=== PATIENT | female | born 1970 | race Caucasian/White ===

== ENCOUNTER 2022-03-26 06:35 | Outpatient (CLI) | payer OTHER, SELFPAY ==
[2022-03-26 07:43] LABS: Basophils Absolute Auto 0.1 K/mm3 (0.0-0.1); Basophils Percent Auto 0.8 % (0.2-1.2); Eosinophils Absolute Auto 0.2 K/mm3 (0-0.3); Eosinophils Percent Auto 3.8 % (0-4.4); Hematocrit 38.1 % (37.0-47.0); Hemoglobin 12.3 g/dL (12.0-15.0); Immature Granulocyte Absolute 0.06 K/mm3 (0.00-0.031); Lymphocytes Absolute Auto 1.76 K/mm3 (0.9-3.2); Lymphocytes Percent Auto 28.8 % (18.3-44.2); Mean Corpuscular HGB Conc 32.3 g/dl (32-36); Mean Corpuscular Hemoglobin 29.4 pg (26-34); Mean Corpuscular Volume 90.9 fl (80-100); Mean Platelet Volume 8.5 fl (7.4-10.4); Monocytes Absolute Auto 0.4 K/mm3 (0.1-0.6); Monocytes Percent Auto 6.9 % (2.6-8.5); Neutrophils Absolute Auto 3.6 K/mm3 (1.3-6.7); Neutrophils Percent Auto 58.7 % (45.5-73.1); Platelet Count Result 184 k/mm3 (150-375); Red Blood Count 4.19 M/mm3 (4.2-5.4); Red Cell Distribution Width 15.3 % (11.5-14.5); White Blood Count 6.1 K/mm3 (4.5-10.0)
[2022-03-26 07:49] LABS: Appearance Urine Slightly Cloudy (Clear); Bilirubin Urine Negative (Negative); Blood Urine Negative (Negative); Color Urine Yellow (Yellow); Glucose Urine UA Negative (Negative); Ketones Urine Trace mg/dL (Negative); Leukocyte Esterase Ur Trace LEU/UL (NEGATIVE); Nitrate Urine Negative (Negative); Protein Urine Trace mg/dL (Negative); Specific Grav Ur 1.025 (1.001-1.035)
[2022-03-26 07:52] LABS: Bacteria Urine Trace /hpf; RBC Urine 0-2 /hpf (0-2); Squamous Epithelial Cell Urine Moderate /hpf (Few)
[2022-03-26 08:01] LABS: Alanine Aminotransferase 53 U/L (6-35); Albumin Level 4.4 g/dL (3.5-5.1); Alkaline Phosphatase 96 U/L (38-126); Anion Gap 8 mmol/L (8-16); Aspartate Amino Transferase 74 U/L (14-36); Bilirubin,Total 0.3 mg/dL (0.2-1.3); Blood Urea Nitrogen 13 mg/dL (7-17); Calcium 9.1 mg/dL (8.4-10.2); Carbon Dioxide 27 mmol/L (22-30); Chloride 106 mmol/L (98-107); Cholesterol 206 mg/dL (0-200); Estimated Glomerular Filt Rate > 60; Glucose 129 mg/dL (65-110); HDL Direct 32 mg/dL; Phosphorus 4.2 mg/dL (2.5-4.5); Sodium 141 mmol/L (137-145); Triglycerides 279 mg/dL (<150)
[2022-03-26 08:04] LABS: Creatinine Urine 140.9 mg/dL; Total Protein Urine Random 13 mg/dL; Ur Ttl Prot Creatinine Ratio 0.09 mg/mg (0-0.20)
[2022-03-26 08:09] LABS: Microalbumin Urine Random < 6.0 mg/L (0-16.7)
[2022-03-26 08:10] LABS: MALB Creatinine Ratio < 4.3 mg/g (0-30)
[2022-03-26 08:11] LABS: LDL Cholesterol Direct 114 mg/dL
[2022-03-26 08:17] LABS: Free T4 Free Thyroxine 1.05 ng/mL (0.78-2.19); Vitamin D 25 Hydroxy 23.5 ng/mL
[2022-03-26 08:23] LABS: Add Urine Microscopic? YES
--- NOTE | 2022-03-26 09:34 | WPDNEUROLOGY ---
Neurology EEG Report General Information Date of Study: 03/26/22 TEST eeg DIAGNOSIS amnesia CONDITION OF RECORDING Awake drowsy and sleep EEG NUMBER [id number] CLINICAL HISTORY patient has history of chemotherapy and is having issues with her memory EEG DESCRIPTION basic resting occipital frequency consists of moderate amount of medium voltage 8 to 9 hertz per 2nd alpha admixed with minimal amount of low-voltage 15 to 18 hertz per 2nd beta. Bilateral symmetrical sleep activity seen during sleep. Low-voltage beta activity seen diffusely intermittently during drowsiness. Photic stimulation produced normal drive. Hyperventilation not done. Non paroxysmal. Non focal. Nonlateralizing. IMPRESSION Normal record
== END 2022-03-26 06:36 | disposition home or self-care (01) ==
PROVIDERS: PCP Internal Medicine; Visit Provider Psychiatry & Neurology Neurology
DX: E11.65 Type 2 diabetes mellitus with hyperglycemia (principal); E78.5 Hyperlipidemia, unspecified; K76.89 Other specified diseases of liver; E87.1 Hypo-osmolality and hyponatremia; E55.9 Vitamin D deficiency, unspecified; N39.0 Urinary tract infection, site not specified
CPT/HCPCS: 36415; 80053; 80061; 81001; 82043; 82306; 82570; 83036; 83970; 84100; 84156; 84439; 84443; 85025; 95816

== ENCOUNTER 2023-03-10 10:03 | Outpatient (CLI) | payer OTHER, SELFPAY ==
--- NOTE | ~2023-03-10 | XR_ITS ---
XR abdomen/kub 1V 03/10/2023 11:10 Indication: Decreased bowel sounds. Procedure: KUB Comparison: No prior studies for comparison. Findings: There is an oval mass overlying the right kidney with circumferential calcification, most l ikely a gallstone. Bowel gas pattern nonobstructive. Moderate colonic fecal loading. No acute osseous abnormality.. No acute osseous abnormality. Impression: 1: Oval circumferentially calcified mass overlying the right upper abdomen, possibly gallstone. Recom mend correlation with CT or ultrasound as clinically indicated. Reviewed, dictated and finalized at location [] Impression: 1: Oval circumferentially calcified mass overlying the right upper abdomen, pos sibly gallstone. Recommend correlation with CT or ultrasound as clinically shanta cated.
== END 2023-03-10 10:04 | disposition home or self-care (01) ==
PROVIDERS: PCP Internal Medicine; Visit Provider Nurse Practitioner
DX: R19.01 Right upper quadrant abdominal swelling, mass and lump (principal); K59.00 Constipation, unspecified; R10.32 Left lower quadrant pain
CPT/HCPCS: 74018

== ENCOUNTER 2023-04-19 09:31 | Outpatient (CLI) | payer OTHER, SELFPAY ==
--- NOTE | ~2023-04-19 | CT_ITS ---
CT of the Abdomen and Pelvis: Indication: Calcified right abdominal mass Technique: 2.5 mm axial scans were obtained through the abdomen and pelvis following intravenous adm inistration of 100 cc of Omnipaque 350. Dose reduction technique was used on this scan by utilizing a utomated exposure control and iterative reconstruction technique. The dose-length product (DLP) was 1 279.37 mGy-cm. Findings: Scans through the lung bases are unremarkable. The liver, pancreas, adrenals and kidneys are within normal limits. 2.6 cm peripherally calcified gal lstone is present. Spleen is mildly enlarged. There are atherosclerotic calcifications of the aorta. No lymphadenopathy. No bowel obstruction or bowel wall thickening. Normal appendix. Images through the pelvis were performed. Urinary bladder unremarkable. No adnexal mass seen. No asci alexey. Impression: Cholelithiasis. Splenomegaly, of uncertain etiology. Reviewed, dictated and finalized at [facility]. Impression: Cholelithiasis. Splenomegaly, of uncertain etiology.
[2023-04-19 10:17] LABS: Estimated Glomerular Filt Rate > 60
== END 2023-04-19 09:32 | disposition home or self-care (01) ==
LOC: ANHIMG 09:33
PROVIDERS: PCP Internal Medicine; Visit Provider Nurse Practitioner
DX: R93.5 Abnormal findings on diagnostic imaging of other abdominal regions, including retroperitoneum (principal); R19.4 Change in bowel habit; R10.32 Left lower quadrant pain; K59.00 Constipation, unspecified; R19.01 Right upper quadrant abdominal swelling, mass and lump; K80.20 Calculus of gallbladder without cholecystitis without obstruction; R16.1 Splenomegaly, not elsewhere classified
CPT/HCPCS: 74177; Q9967

== ENCOUNTER 2023-05-26 11:34 | Outpatient (CLI) | payer OTHER, SELFPAY ==
--- NOTE | 2023-05-26 11:30 | ECG_ITS ---
Measurements Intervals [place] Rate: 108 P: 39 AK: 156 QRS: 0 QRSD: 96 T: 77 QT: 327 QTc: 439 Interpretive Statements SINUS TACHYCARDIA VOLTAGE CRITERIA FOR LVH [MEETS CRITERIA IN ONE OF: R(aVL), S(V1), R(V5), R(V5/V6)+S(V1)] NONSPECIFIC T-WAVE ABNORMALITY ABNORMAL ECG NO PREVIOUS ECG AVAILABLE FOR COMPARISON Electronically Signed On 05-26-2023 14:35:53 CDT by Hermelindo Oden M.D.
[2023-05-26 12:25] LABS: Prothrombin Time 13.5 Seconds (11.1-14.7)
[2023-05-26 12:27] LABS: Anion Gap 12 mmol/L (8-16); Blood Urea Nitrogen 12 mg/dL (7-17); Calcium 9.7 mg/dL (8.4-10.2); Carbon Dioxide 25 mmol/L (22-30); Chloride 99 mmol/L (98-107); Estimated Glomerular Filt Rate > 60; Glucose 307 mg/dL (65-110); Potassium 4.3 mmol/L (3.4-5.0); Sodium 136 mmol/L (137-145)
[2023-05-26 12:28] LABS: Alanine Aminotransferase 38 U/L (6-35); Albumin Level 4.3 g/dL (3.5-5.1); Alkaline Phosphatase 124 U/L (38-126); Amylase 47 U/L (30-110); Aspartate Amino Transferase 43 U/L (14-36); Bilirubin,Total 0.4 mg/dL (0.2-1.3); Lipase 149 U/L (23-300)
== END 2023-05-26 11:35 | disposition home or self-care (01) ==
LOC: ANHSURGERY 11:40
PROVIDERS: Anesthesiology; PCP Internal Medicine; Visit Provider Surgery
DX: Z01.812 Encounter for preprocedural laboratory examination (principal); Z01.810 Encounter for preprocedural cardiovascular examination; K80.20 Calculus of gallbladder without cholecystitis without obstruction; E11.9 Type 2 diabetes mellitus without complications; Z72.0 Tobacco use; R00.0 Tachycardia, unspecified
CPT/HCPCS: 36415; 80048; 80076; 82150; 83690; 85610; 86850; 86900; 86901; 93005

== ENCOUNTER 2023-06-03 02:14 | Day surgery (SDC) | payer OTHER, SELFPAY ==
[2023-05-24 14:57] VITALS: BMI 30.1
--- NOTE | 2023-05-24 14:59 | PC.NURSE ---
Report to the Outpatient Waiting Room, entrance under the green pavilion located off [facility], at time _1130_ on date _[id number]_. Planned Procedure Time: _130pm_. Time changes happen often and if your time is changed the preop area will call you the afternoon before. - You and your visitor will be asked to self-screen and do not enter if you have any COVID symptoms. - A mask is optional within the hospital at this time. Patients may have clear liquids (water, carbonated beverages, clear teas, apple juice) until 3 hours prior to surgery with a maximum of 20 ounces. - No food from midnight until time of surgery Take the following medications with a SIP of water the morning of surgery: ___Lamotrigine, Gabapentin, Duloxetine, Quetiapine, and Venlafaxine. DO NOT STOP ANY OF YOUR OTHER PRESCRIPTION MEDICATIONS PRIOR TO SURGERY Medications to discontinue per physician ____None Date to take last dose Please no make-up, nail slovenian, hairspray, perfume, deodorant, or body powder the day of surgery. No jewelry (including any body piercings) or valuables the day of surgery, leave them at home. Please take a shower or bath the night before, or the morning of, surgery with Chlorhexadine gluconate an antibacterial soap. Wear comfortable, loose fitting clothing. - Jewelry must be removed prior to entering the operating room. Rings and piercings that are not removed may be cut off. - The hospital will not accept responsibility for valuables. - Please leave all valuables, including medications, at home the day of surgery. If you are going home after surgery, a licensed regional company truck driver must drive you home. - NO public transportation without another adult if you receive anesthesia. - We recommend that an adult stay with you for 24 hours following discharge. - We also recommend that you do not drive, make important decision, drink alcoholic beverages, or take any drugs that were not prescribed by your health care provider for at least 24 hours after your discharge time. Follow any additional instructions given to you from your surgeon. If you or anyone in your household have experienced Covid symptoms in the past week, please notify your surgeon or the nurse liaison at the phone number below for possible testing. Telephone instructions given to _Patient__and asked if any additional questions and then verbalized understanding. Patient advised to call surgeon office or pre surgery nurse liaison [phone] if any additional questions.
[2023-06-03] VITALS (11 sets, daily range): BP systolic 101–139; BP diastolic 60–84; PULSE 82–117; RESP 12–18; TEMP 36.3–36.8; O2SAT 88–98
[2023-06-03] MEDS: ACETAMINOPHEN 500 MG TABLET 1000 MG PO (12:14)
[2023-06-03] MEDS: KETOROLAC 15 MG/ML VIAL (*BKC) IV PUSH (12:15)
--- NOTE | 2023-06-03 13:07 | WPDANESEPPF ---
Anes - Initial Pre Proc Eval Procedure: Operation Date: 06/03/23 13:30 Proposed Procedures p Laparoscopic Cholecystectomy, Possible Open - Wood Lewis DO Date/Time: 06/03/23 13:07 Surgeon: Wood Lewis DO Pre Op Diagnosis: cholelithiasis Patient Data Age: 53 Gender: F Height: 1.59 m Weight: 76.6 kg Last Vital Signs Temp 36.8 C 06/03/23 11:46 Pulse 117 H 06/03/23 11:46 Resp 18 06/03/23 11:46 BP 139/84 06/03/23 11:46 Pulse Ox 96 06/03/23 11:46 O2 Del Method Room Air 06/03/23 11:46 Allergies Allergy/AdvReac Type Severity Reaction Status Date / Time clindamycin Allergy Severe Vomiting Verified 06/03/23 11:53 sulfamethoxazole Allergy Severe Vomiting Verified 06/03/23 11:53 Penicillins Allergy Mild RASH Verified 06/03/23 11:53 nalbuphine [From Nubain] AdvReac Severe Migraine Verified 06/03/23 11:53 tramadol AdvReac Seizure Verified 06/03/23 11:53 Home Medications Medication Instructions Recorded Confirmed Type gabapentin 800 mg tablet 800 mg PO QID 12/26/20 06/03/23 History albuterol sulfate 90 mcg/actuation 1 puff inhalation Q4H PRN Dyspnea 12/30/20 06/03/23 History aerosol inhaler (Ventolin HFA) beclomethasone dipropionate 80 80 mcg inhalation BID PRN Dyspnea 12/30/20 06/03/23 History mcg/actuation aerosol inhaler fenofibrate 120 mg tablet 120 mg PO DAILY 12/30/20 06/03/23 History liraglutide 0.6 mg/0.1 mL (18 mg/3 0.6 mg subcut DAILY 12/30/20 06/03/23 History mL) subcutaneous pen injector (Victoza 2-Rickie) montelukast 10 mg tablet 10 mg PO DAILY PRN Allergy Symptoms 12/30/20 06/03/23 History (Singulair) ondansetron HCl 4 mg tablet 4 mg PO Q12H 12/30/20 06/03/23 History (Zofran) ondansetron HCl 8 mg tablet 8 mg PO Q12H 12/30/20 06/03/23 History omeprazole 40 mg capsule,delayed 40 mg PO DAILY #30 caps 03/10/23 06/03/23 Rx release atorvastatin 40 mg tablet 40 mg PO HS 05/24/23 06/03/23 History cyclobenzaprine 10 mg tablet 10 mg PO TID 05/24/23 06/03/23 History duloxetine 20 mg capsule,delayed 20 mg PO BID 05/24/23 06/03/23 History release glimepiride 1 mg tablet 1 mg PO BID 05/24/23 06/03/23 History hydroxyzine pamoate 50 mg capsule 50 mg PO TID 05/24/23 06/03/23 History insulin glargine 100 unit/mL (3 10 unit subcut HS 05/24/23 06/03/23 History mL) subcutaneous pen (Lantus Solostar U-100 Insulin) ketorolac 10 mg tablet 10 mg PO Q6H PRN Pain 05/24/23 06/03/23 History lamotrigine 100 mg tablet 100 mg PO BID 05/24/23 06/03/23 History metformin 500 mg tablet 500 mg PO BID 05/24/23 06/03/23 History promethazine 25 mg tablet 25 mg PO Q8H 05/24/23 06/03/23 History quetiapine 100 mg tablet 100 mg PO HS 05/24/23 06/03/23 History quetiapine 25 mg tablet 25 mg PO BID 05/24/23 06/03/23 History quetiapine 300 mg tablet 300 mg PO HS 05/24/23 06/03/23 History venlafaxine 75 mg capsule,extended 75 mg PO QAM 05/24/23 06/03/23 History release 24 hr Patient hx anesthesia problems: post op nausea/vomiting Family hx anesthesia problems: none Results Review: All pre-operative results and documents have been reviewed as part of the pre-operative evaluation. [facility] Past Medical History Medical History Abdominal distension Abdominal mass, RUQ (right upper quadrant) Abnormal x-ray of abdomen Breast removal, prophylactic Change in bowel habit Constipation COPD (chronic obstructive pulmonary disease) Diabetes Dysphagia Gallstones without obstruction of gallbladder LLQ pain Migraines Nausea and vomiting Neuropathy Spleen enlarged Surgical History Surgical History H/O tubal ligation H/O: hysterectomy Social History Social History Social History: current smoker Smoking packs per day: 1.5 Smoking cigarettes per day: 30.0 Years smoked: 20 Smoking pack-years: 30.00 S
--- NOTE | 2023-06-03 13:18 | WPDHPUPDATE1 ---
History and Physical Update Update Date/Time: 06/03/23 13:18 History and Physical has been reviewed, including an updated exam of the patient. There are NO changes in the patient's condition. Risks, benefits, and alternatives have been discussed and questions answered. Patient agrees to proceed with procedure.
--- NOTE | 2023-06-03 13:18 | PM.IMHP ---
H&P: HPI History of Present Illness Date/Time: 06/03/23 13:18 Chief Complaint: Symptomatic cholelithiasis Narrative: This is a 53-year-old woman who presents for laparoscopic cholecystectomy. She denies any changes since last seen in the office. Review of Systems Review of Systems: All systems reviewed & are unremarkable except as noted in HPI and below Constitutional: Constitutional: Denies chills, Denies fever(s), Denies headache(s) and Denies weight loss Eyes: Eyes: Denies change in vision ENT: Denies dizziness, Denies headache(s), Denies neck mass and Denies throat swelling Cardiovascular: Cardiovascular: Denies chest pain, Denies lightheadedness and Denies dyspnea Respiratory: Respiratory: Denies cough, Denies dyspnea and Denies wheezing Gastrointestinal: Gastrointestinal: Denies abdominal pain, Denies change in bowel habits, Denies nausea and Denies vomiting Genitourinary: Genitourinary: Denies hematuria and Denies dysuria Musculoskeletal: Musculoskeletal: Reports as per HPI Integumentary/Breasts: Skin/Breast: Reports as per HPI Neurologic: Denies dizziness and Denies headache(s) Allergic/Immunologic: Allergic/Immunologic: Denies throat swelling and Denies wheezing PMFSH Past Medical History Medical History Abdominal distension Abdominal mass, RUQ (right upper quadrant) Abnormal x-ray of abdomen Breast removal, prophylactic Change in bowel habit Constipation COPD (chronic obstructive pulmonary disease) Diabetes Dysphagia Gallstones without obstruction of gallbladder LLQ pain Migraines Nausea and vomiting Neuropathy Spleen enlarged Surgical History Surgical History H/O tubal ligation H/O: hysterectomy Social History Social History Social History: current smoker Smoking packs per day: 1.5 Smoking cigarettes per day: 30.0 Years smoked: 20 Smoking pack-years: 30.00 Smoking status: Former smoker Tobacco type: cigarettes Alcohol intake: never Substance use: current Substance use type: marijuana Other substance usage details: Daily Living arrangements: with family Spiritual care concerns: No Meds Home Medications and Allergies Home Medications Medication Instructions Recorded Confirmed Type gabapentin 800 mg tablet 800 mg PO QID 12/26/20 06/03/23 History albuterol sulfate 90 mcg/actuation 1 puff inhalation Q4H PRN Dyspnea 12/30/20 06/03/23 History aerosol inhaler (Ventolin HFA) beclomethasone dipropionate 80 80 mcg inhalation BID PRN Dyspnea 12/30/20 06/03/23 History mcg/actuation aerosol inhaler fenofibrate 120 mg tablet 120 mg PO DAILY 12/30/20 06/03/23 History liraglutide 0.6 mg/0.1 mL (18 mg/3 0.6 mg subcut DAILY 12/30/20 06/03/23 History mL) subcutaneous pen injector (OpenWhereza 2-Rickie) montelukast 10 mg tablet 10 mg PO DAILY PRN Allergy Symptoms 12/30/20 06/03/23 History (Singulair) ondansetron HCl 4 mg tablet 4 mg PO Q12H 12/30/20 06/03/23 History (Zofran) ondansetron HCl 8 mg tablet 8 mg PO Q12H 12/30/20 06/03/23 History omeprazole 40 mg capsule,delayed 40 mg PO DAILY #30 caps 03/10/23 06/03/23 Rx release atorvastatin 40 mg tablet 40 mg PO HS 05/24/23 06/03/23 History cyclobenzaprine 10 mg tablet 10 mg PO TID 05/24/23 06/03/23 History duloxetine 20 mg capsule,delayed 20 mg PO BID 05/24/23 06/03/23 History release glimepiride 1 mg tablet 1 mg PO BID 05/24/23 06/03/23 History hydroxyzine pamoate 50 mg capsule 50 mg PO TID 05/24/23 06/03/23 History insulin glargine 100 unit/mL (3 10 unit subcut HS 05/24/23 06/03/23 History mL) subcutaneous pen (Lantus Solostar U-100 Insulin) ketorolac 10 mg tablet 10 mg PO Q6H PRN Pain 05/24/23 06/03/23 History lamotrigine 100 mg tablet 100 mg PO BID 05/24/23 06/03/23 History metformin 500 mg tablet 500 mg PO BID
[2023-06-03] MEDS: LACTATED RINGERS 1,000 ML 30 ML IV CONT (14:31)
--- NOTE | 2023-06-03 14:33 | W.PM.PROC2 ---
Procedure Note - Detailed Date of Procedure 06/03/23 Pre-op Diagnosis cholelithiasis Post-op Diagnosis Other (Cholelithiasis, cirrhosis) Procedure Performed Laparoscopic Cholecystectomy Surgeon Wood Lewis DO Anesthesia General and Local (0.5% bupivacaine) Indications This is a 53-year-old woman who was referred for findings of cholelithiasis on the CT. She was having mostly lower abdominal pains but did have some nausea and occasional vomiting as well. Her CT showed evidence of a 2.6 cm gallstone within the gallbladder. She was also noted to have splenomegaly. Her preoperative PT and INR were normal, and she had mild elevated transaminases. Discussions were made with the patient about treatment options and decision was made to proceed with laparoscopic cholecystectomy, possible open. Findings Laparoscopic cholecystectomy was performed. The gallbladder was somewhat dilated and contained a very large gallstone within the neck of the gallbladder. The liver had evidence of cirrhosis with nodularity along the surface. The cystic duct appeared normal in size. No other significant abnormalities were noted. The gallbladder was removed and sent to the lab for pathology. Noelle was sprayed along the gallbladder fossa to still operator helper with hemostasis. Description of Procedure Procedure as well as risks, benefits, and alternatives were discussed with patient. Written consent was obtained and placed in chart prior to procedure. The patient was brought back to surgical suite. Patient was placed in supine position on operating table. Time-out was done to confirm patient and procedure. Patient was then intubated by the anesthesia department. Abdomen was prepped and draped in sterile fashion using chlorhexidine prep. 0.5% bupivacaine with epinephrine was infiltrated at each site of incision. A 5 millimeter incision was made near the umbilicus, and a 5 millimeter Optiview trocar was advanced through the abdominal layers under direct visualization. Once inside the abdominal cavity, carbon dioxide was insufflated to create a pneumoperitoneum. The camera was inserted and the abdomen was inspected. No immediate abnormalities were identified. The patient was placed in reverse Trendelenburg position and rotated slightly to the left. An 11 millimeter incision was made in the subxiphoid region, and an 11 millimeter trocar was inserted under direct visualization. Two 5 millimeter incisions were made in the right upper quadrant, and two 5 millimeter trocars were inserted under direct visualization. The gallbladder was identified and grasped at the fundus and retracted superiorly. It was then grasped at the infundibulum retracted laterally. Careful dissection around the neck of the gallbladder was performed using blunt dissection with a [place] grasper and hook electrocautery. The cystic duct was identified, and a window was created behind it. The cystic artery was also identified and a window was created behind it. The critical view of safety was identified, visualizing the cystic duct running directly into the neck of the gallbladder, and the cystic artery running directly into the wall of the gallbladder. A 5 millimeter clip furniture salesperson was then used to place 2 clips proximally and 1 clip distally on both the cystic duct and cystic artery. They were then both transected using endoscopic scissors. Once safely away from the jacinto hepatitis, the gallbladder was dissected free from the liver bed using hook electrocautery. Hemostasis was achieved along the way. The gallbladder was removed completely and then removed through the subxiphoid port. The liver bed was then inspected. Hemostasis appeared adequate, and our clips appeared secure. The area was gently irrigated with sterile saline. No other abnormalities were seen. The patient was flattened out in bed, and 1 final inspection was made around the abdominal cavity. The subxiphoid port was removed, and a [place]
[2023-06-03] MEDS: SCOPOLAMINE 1.5 MG PATCH TRANSDERM (14:55)
[2023-06-03] MEDS: INSULIN HUMAN REGULAR (*BKC) 100 UNITS/ML 8 UNITS SUB-Q (15:02)
[2023-06-03 15:17] LABS: Glucose Point of Care 267 mg/dl (65-105)
[2023-06-03] MEDS: oxyCODONE HCL (*CRX) 5 MG TAB IR PO (15:34)
== END 2023-06-03 16:50 | disposition home or self-care (01) ==
PROVIDERS: PCP Internal Medicine; Visit Provider Surgery
PROC: 0FT44ZZ Resection of Gallbladder, Percutaneous Endoscopic Approach (ICD-10-PCS; CPT 47562; principal; 2023-06-03 13:30)
DX: K80.10 Calculus of gallbladder with chronic cholecystitis without obstruction (principal); K74.60 Unspecified cirrhosis of liver; R16.1 Splenomegaly, not elsewhere classified; Z79.51 Long term (current) use of inhaled steroids; Z79.899 Other long term (current) drug therapy; Z79.84 Long term (current) use of oral hypoglycemic drugs; Z79.4 Long term (current) use of insulin; J44.9 Chronic obstructive pulmonary disease, unspecified; E11.40 Type 2 diabetes mellitus with diabetic neuropathy, unspecified; Z87.891 Personal history of nicotine dependence; F12.90 Cannabis use, unspecified, uncomplicated; E66.9 Obesity, unspecified; Z68.30 Body mass index [BMI] 30.0-30.9, adult
CPT/HCPCS: 47562; 82948; 88304; A9270; J0690; J1100; J1815; J1885; J2250; J2405; J2704; J7030; J7120

== ENCOUNTER 2023-07-13 14:46 | Outpatient (CLI) | payer OTHER, SELFPAY ==
[2023-07-13 15:40] LABS: Hematocrit 43.1 % (37.0-47.0); Hemoglobin 13.6 g/dL (12.0-15.0); Mean Corpuscular HGB Conc 31.6 g/dl (32-36); Mean Corpuscular Hemoglobin 29.6 pg (26-34); Mean Corpuscular Volume 93.9 fl (80-100); Mean Platelet Volume 8.6 fl (7.4-10.4); Platelet Count Result 197 k/mm3 (150-375); Red Blood Count 4.59 M/mm3 (4.2-5.4); White Blood Count 7.2 K/mm3 (4.5-10.0)
[2023-07-13 15:45] LABS: Ammonia 11 umol/L (9-30)
[2023-07-13 15:54] LABS: Prothrombin Time 14.1 Seconds (11.1-14.7)
[2023-07-13 15:57] LABS: Alanine Aminotransferase 31 U/L (6-35); Albumin Level 4.5 g/dL (3.5-5.1); Alkaline Phosphatase 105 U/L (38-126); Anion Gap 9 mmol/L (8-16); Aspartate Amino Transferase 50 U/L (14-36); Bilirubin,Total 0.6 mg/dL (0.2-1.3); Blood Urea Nitrogen 10 mg/dL (7-17); Calcium 9.3 mg/dL (8.4-10.2); Carbon Dioxide 25 mmol/L (22-30); Chloride 103 mmol/L (98-107); Estimated Glomerular Filt Rate > 60; Glucose 181 mg/dL (65-110); Potassium 3.7 mmol/L (3.4-5.0); Sodium 137 mmol/L (137-145)
[2023-07-13 16:03] LABS: NT Pro B Type Natriuretic Pept 146 pg/mL (19.9-100)
[2023-07-13 18:26] LABS: Iron 74 ug/dL (37-170)
[2023-07-13 18:36] LABS: Percent Iron Saturation 21 % (20-50)
[2023-07-13 19:02] LABS: Hepatitis B Surface Anti Res Negative; Hepatitis C Virus Antibody Negative (Negative)
[2023-07-13 19:06] LABS: HAV RESULT Negative (Negative); Hepatitis B Surface Antigen Negative (Negative)
[2023-07-13 19:56] LABS: Hepatitis B Core IgM Result Negative (Negative)
[2023-07-13 19:57] LABS: Hepatitis B Core Antibody, IgM 0.04 S/C
[2023-07-15 10:55] LABS: Hepatitis A Antibody Total Nonreactive (Nonreactive)
[2023-07-15 21:46] LABS: Mitochondrial (M2) Ab (IgG) <=20.0 U (<=20.0)
[2023-07-15 22:15] LABS: Actin Antibody (IgG) <20 U (<20)
[2023-07-17 14:43] LABS: LKM 1 Antibody <=20.0 U (<=20.0)
[2023-07-17 18:31] LABS: Alpha Fetoprotein Tumor Marker 3.7 ng/mL (<6.1)
[2023-07-18 04:29] LABS: Alpha-1-Antitrypsin, QN 212 mg/dL (83-199)
[2023-07-21 15:07] LABS: ALT 24 U/L (6-29); Alpha-2-Macroglobulin 182 mg/dL (106-279); Apolipoprotein A1 130 mg/dL (101-198); Fibrosis Score 0.14; Fibrosis Stage F0; GGT 93 U/L (3-70); Haptoglobin 252 mg/dL (43-212); Necroinflammat Act Grade A0; Total Bilirubin 0.3 mg/dL (0.2-1.2)
== END 2023-07-13 14:47 | disposition home or self-care (01) ==
LOC: ANHLAB 14:47
PROVIDERS: PCP Internal Medicine; Visit Provider Nurse Practitioner
DX: R16.1 Splenomegaly, not elsewhere classified (principal); R14.0 Abdominal distension (gaseous); K74.60 Unspecified cirrhosis of liver
CPT/HCPCS: 36415; 80053; 80074; 81596; 82103; 82105; 82140; 82728; 83520; 83540; 83550; 83880; 85027; 85610; 86038; 86364; 86376; 86706; 86708

== ENCOUNTER 2023-08-08 08:25 | Outpatient (CLI) | payer OTHER, SELFPAY ==
--- NOTE | ~2023-08-08 | US_ITS ---
EXAMINATION: US abdomen limited DATE: 08/08/2023 09:10 INDICATION: Unspecified cirrhosis of liver. TECHNIQUE: Multiple grayscale and Doppler ultrasound images of the abdomen were obtained. COMPARISON: CT 04/19/2023 FINDINGS: The visualized portions of the head and body of the pancreas are normal. There is diffuse h epatic steatosis.. No liver surface nodularity. There is normal flow in main portal vein. The gallbla dder is absent. The common duct is normal and measures 7 mm. There is no ascites. IMPRESSION: 1. Diffuse hepatic steatosis. Reviewed, dictated and finalized at location [facility]. [facility]
== END 2023-08-08 08:26 | disposition home or self-care (01) ==
PROVIDERS: PCP Internal Medicine; Visit Provider Nurse Practitioner
DX: K74.60 Unspecified cirrhosis of liver (principal); K76.0 Fatty (change of) liver, not elsewhere classified
CPT/HCPCS: 76705

== ENCOUNTER 2023-09-07 00:34 | Day surgery (SDC) | payer OTHER, SELFPAY ==
[2023-08-24 12:24] VITALS: BMI 29.3
--- NOTE | 2023-09-05 11:23 | SUR.PREOP ---
Patient called regarding upcoming procedure. Reviewed preop instructions, appointment times, and procedure prep.
[2023-09-07 08:11] VITALS: BP 143/90; PULSE 102; RESP 20; TEMP 36.6; O2SAT 96; BMI 29.3
[2023-09-07] MEDS: LACTATED RINGERS 1,000 ML 150 ML IV CONT (08:26)
[2023-09-07 08:31] LABS: Glucose Point of Care 180 mg/dl (65-105)
--- NOTE | 2023-09-07 09:16 | WPDANESEPPF ---
Anes - Initial Pre Proc Eval Procedure: Operation Date: 09/07/23 09:00 Proposed Procedures p Esophagogastroduodenoscopy - Cholo Dias MD Date/Time: 09/07/23 09:16 Surgeon: Cholo Dias MD Pre Op Diagnosis: Cirrhosis of liver,constipation,GERD,gaseous Patient Data Age: 53 Gender: F Height: 1.57 m Weight: 72.8 kg Last Vital Signs Temp 97.8 F 09/07/23 08:11 Pulse 102 H 09/07/23 08:11 Resp 20 09/07/23 08:11 BP 143/90 H 09/07/23 08:11 Pulse Ox 96 09/07/23 08:11 O2 Del Method Room Air 09/07/23 08:11 Allergies Allergy/AdvReac Type Severity Reaction Status Date / Time clindamycin Allergy Severe Vomiting Verified 09/07/23 08:10 sulfamethoxazole Allergy Severe Vomiting Verified 09/07/23 08:10 Penicillins Allergy Mild RASH Verified 09/07/23 08:10 nalbuphine [From Nubain] AdvReac Severe Migraine Verified 09/07/23 08:10 tramadol AdvReac Seizure Verified 09/07/23 08:10 Home Medications Medication Instructions Recorded Confirmed Type gabapentin 800 mg tablet 800 mg PO QID 12/26/20 08/24/23 History albuterol sulfate 90 mcg/actuation 1 puff inhalation Q4H PRN Dyspnea 12/30/20 08/24/23 History aerosol inhaler (Ventolin HFA) beclomethasone dipropionate 80 80 mcg inhalation BID PRN Dyspnea 12/30/20 08/24/23 History mcg/actuation aerosol inhaler fenofibrate 120 mg tablet 120 mg PO DAILY 12/30/20 08/24/23 History liraglutide 0.6 mg/0.1 mL (18 mg/3 0.6 mg subcut DAILY 12/30/20 08/24/23 History mL) subcutaneous pen injector (Victoza 2-Rickie) montelukast 10 mg tablet 10 mg PO DAILY PRN Allergy Symptoms 12/30/20 08/24/23 History (Singulair) ondansetron HCl 4 mg tablet 4 mg PO Q12H 12/30/20 08/24/23 History (Zofran) ondansetron HCl 8 mg tablet 8 mg PO Q12H 12/30/20 08/24/23 History atorvastatin 40 mg tablet 40 mg PO HS 05/24/23 08/24/23 History cyclobenzaprine 10 mg tablet 10 mg PO TID 05/24/23 08/24/23 History glimepiride 1 mg tablet 1 mg PO BID 05/24/23 08/24/23 History hydroxyzine pamoate 50 mg capsule 50 mg PO TID 05/24/23 08/24/23 History insulin glargine 100 unit/mL (3 10 unit subcut HS 05/24/23 08/24/23 History mL) subcutaneous pen (Lantus Solostar U-100 Insulin) lamotrigine 100 mg tablet 100 mg PO BID 05/24/23 08/24/23 History metformin 500 mg tablet 500 mg PO BID 05/24/23 08/24/23 History promethazine 25 mg tablet 25 mg PO Q8H 05/24/23 08/24/23 History quetiapine 100 mg tablet 100 mg PO HS 05/24/23 08/24/23 History quetiapine 25 mg tablet 25 mg PO BID 05/24/23 08/24/23 History venlafaxine 75 mg capsule,extended 75 mg PO QAM 05/24/23 08/24/23 History release 24 hr carvedilol 6.25 mg tablet 6.25 mg PO Q12H 07/13/23 08/24/23 History hydrocortisone 2.5 % topical cream 1 applic RECTAL DAILY PRN 07/13/23 08/24/23 Rx with perineal applicator hemorrhoids #30 grams (Anusol-HC) quetiapine 300 mg tablet 400 mg PO HS 07/13/23 08/24/23 History ketorolac 10 mg tablet 10 mg PO QID 08/24/23 08/24/23 History omeprazole 40 mg capsule,delayed 40 mg PO DAILY 08/24/23 08/24/23 History release Laboratory Tests 09/07/23 08:19 POC Capillary Glucose 180 H mg/dl (65-105) Patient hx anesthesia problems: none Family hx anesthesia problems: none Results Review: All pre-operative results and documents have been reviewed as part of the pre-operative evaluation. [facility] Past Medical History Medical History (Updated 07/13/23 @ 15:47 by Marysol M. Willian, MOLD MAKER HELPER) Abdominal distension Abdominal mass, RUQ (right upper quadrant) Abnormal x-ray of abdomen BMI 30.0-30.9,adult Breast removal, prophylactic Change in bowel habit Chronic LLQ pain Constipation COPD (chronic obstructive pulmonary disease) Diabetes Dysphagia Gallstones without obstruction of gallbladder GERD (gastroesophageal reflux disease) Hemorrhoids LLQ pain Migraines Nausea and vomiting Neuropathy Spleen enlarged Surgical History Surgical History (Reviewed 07/13/23 @ 1
--- NOTE | 2023-09-07 09:17 | PM.HPGS ---
History of Present Illness History of Present Illness Consent: Risks, benefits, and alternatives have been discussed and questions answered. Patient agrees to proceed with procedure. Chief complaint: Cirrhosis of liver,constipation,GERD,gaseous Narrative: Liest Marshall is a 53 year old female with rios cirrhosis (noted abnormal liver during lap harjeet), here for egd to assess if varices, etc. Review of Systems Constitutional: Constitutional: Denies headache(s) and Denies weakness Eyes: Eyes: Denies blurry vision ENT: Reports Normal hearing present, Denies headache(s) and Denies neck pain Cardiovascular: Cardiovascular: Denies chest pain and Denies dyspnea Respiratory: Respiratory: Denies dyspnea Gastrointestinal: Gastrointestinal: Reports no additional gastrointestinal complaints Genitourinary: Genitourinary: Denies dysuria Musculoskeletal: Musculoskeletal: Denies neck pain Integumentary/Breasts: Skin/Breast: Denies dry skin Neurologic: Reports Normal hearing present, Denies headache(s) and Denies weakness Psychiatric: Psychiatric: Denies anxiety Endocrine: Endocrine: Denies change in body appearance Hematologic/Lymphatic: Hematologic/Lymphatic: Denies easy bleeding Allergic/Immunologic: Allergic/Immunologic: Denies urticaria PMFSH Past Medical History Medical History (Updated 07/13/23 @ 15:47 by Marysol Dorsey, RIZWAN) Abdominal distension Abdominal mass, RUQ (right upper quadrant) Abnormal x-ray of abdomen BMI 30.0-30.9,adult Breast removal, prophylactic Change in bowel habit Chronic LLQ pain Constipation COPD (chronic obstructive pulmonary disease) Diabetes Dysphagia Gallstones without obstruction of gallbladder GERD (gastroesophageal reflux disease) Hemorrhoids LLQ pain Migraines Nausea and vomiting Neuropathy Spleen enlarged Surgical History Surgical History H/O tubal ligation H/O: hysterectomy Hx laparoscopic cholecystectomy 06/03/23 Social History Social History Social History: current smoker Smoking packs per day: 1 Smoking cigarettes per day: 20.0 Years smoked: 30 Smoking pack-years: 30.00 Smoking status: Current every day smoker Tobacco type: cigarettes Second hand tobacco smoke exposure: No Alcohol intake: never Substance use: current Substance use type: marijuana Other substance usage details: smokes Last use: 08/24/23 Lack of Transportation: No Lack of Food: Never True Current Housing: I Have Housing Concerned About Future Housing: No Difficulty Paying Gas/Electric Bills: No Difficulty Paying for Meds: No Currently Unemployed: No Education: High School Diploma/GED Difficulty w/ Childcare or Family Care: No Living arrangements: alone Occupation/Education: unemployed Gender identity (if verbalized by the patient): Female Spiritual care concerns: No Meds Home Medications and Allergies Home Medications Medication Instructions Recorded Confirmed Type gabapentin 800 mg tablet 800 mg PO QID 12/26/20 08/24/23 History albuterol sulfate 90 mcg/actuation 1 puff inhalation Q4H PRN Dyspnea 12/30/20 08/24/23 History aerosol inhaler (Ventolin HFA) beclomethasone dipropionate 80 80 mcg inhalation BID PRN Dyspnea 12/30/20 08/24/23 History mcg/actuation aerosol inhaler fenofibrate 120 mg tablet 120 mg PO DAILY 12/30/20 08/24/23 History liraglutide 0.6 mg/0.1 mL (18 mg/3 0.6 mg subcut DAILY 12/30/20 08/24/23 History mL) subcutaneous pen injector (Victoza 2-Rickie) montelukast 10 mg tablet 10 mg PO DAILY PRN Allergy Symptoms 12/30/20 08/24/23 History (Singulair) ondansetron HCl 4 mg tablet 4 mg PO Q12H 12/30/20 08/24/23 History (Zofran) ondansetron HCl 8 mg tablet 8 mg PO Q12H 12/30/20 08/24/23 History atorvastatin 40 mg tablet 40 mg PO HS 05/24/23 08/24/23 History cyclobenzaprine 10 mg tablet 10 mg PO
[2023-09-07 09:43] VITALS: BP 97/59; PULSE 79; RESP 13; O2SAT 97
[2023-09-07 09:53] VITALS: BP 104/66; PULSE 79; RESP 13; O2SAT 98
[2023-09-07 10:03] VITALS: BP 105/66; PULSE 81; RESP 16; O2SAT 97
[2023-09-07 10:22] LABS: Glucose Point of Care 131 mg/dl (65-105)
== END 2023-09-07 10:18 | disposition home or self-care (01) ==
PROVIDERS: PCP Internal Medicine; Visit Provider Internal Medicine Gastroenterology
PROC: 0DJ08ZZ Inspection of Upper Intestinal Tract, Via Natural or Artificial Opening Endoscopic (ICD-10-PCS; CPT 43235; principal; 2023-09-07 09:00)
DX: K74.60 Unspecified cirrhosis of liver (principal); K21.9 Gastro-esophageal reflux disease without esophagitis; K59.00 Constipation, unspecified; J44.9 Chronic obstructive pulmonary disease, unspecified; E11.40 Type 2 diabetes mellitus with diabetic neuropathy, unspecified; F17.210 Nicotine dependence, cigarettes, uncomplicated; F12.90 Cannabis use, unspecified, uncomplicated; Z79.51 Long term (current) use of inhaled steroids; Z79.85 Long-term (current) use of injectable non-insulin antidiabetic drugs; Z79.84 Long term (current) use of oral hypoglycemic drugs; Z79.4 Long term (current) use of insulin
CPT/HCPCS: 43235; 82948; J2405; J2704; J7120

== ENCOUNTER 2024-02-21 08:14 | Outpatient (CLI) | payer OTHER, SELFPAY ==
--- NOTE | ~2024-02-21 | US_ITS ---
EXAMINATION: US right upper quadrant DATE: 02/21/2024 08:38 INDICATION: Unspecified cirrhosis of liver. TECHNIQUE: Multiple grayscale and Doppler ultrasound images of the abdomen were obtained. COMPARISON: Ultrasound 08/08/2023, CT abdomen and pelvis 08/20/2023 FINDINGS: The visualized portions of the head, body, and tail the pancreas are normal. There is diffu se hepatic steatosis. No liver surface nodularity. There is normal flow in main portal vein. The gall bladder is absent. The common duct is normal and measures 6 mm. IMPRESSION: 1. Diffuse hepatic steatosis. Reviewed, dictated and finalized at location A.
== END 2024-02-21 08:15 | disposition home or self-care (01) ==
LOC: ANHIMG 08:15
PROVIDERS: PCP Internal Medicine; Visit Provider Internal Medicine Gastroenterology
DX: K74.60 Unspecified cirrhosis of liver (principal); K76.0 Fatty (change of) liver, not elsewhere classified
CPT/HCPCS: 76705

== ENCOUNTER 2024-08-21 09:46 | Outpatient (CLI) | payer OTHER, SELFPAY ==
--- NOTE | ~2024-08-21 | US_ITS ---
US right upper quadrant INDICATION: Cirrhosis of the liver PROCEDURE: Realtime right upper abdominal ultrasound. COMPARISON: No prior studies for comparison. FINDINGS: The pancreas is normal without focal mass or pancreatic ductal dilation. Liver surface is somewhat nodular, consistent with cirrhosis. No discrete solid or cystic masses of the liver identifi ed. No biliary dilatation. There is normal directional flow in the portal vein. Gallbladder is surgically absent. Common bile duct measures 6 mm. No sonographic Scmhidt's sign. IMPRESSION: 1: Cirrhosis of the liver. Reviewed, dictated and finalized at location B. LOGY TECHNICIAN IMPRESSION: 1: Cirrhosis of the liver.
== END 2024-08-21 09:47 | disposition home or self-care (01) ==
LOC: ANHIMG 09:51
PROVIDERS: PCP Emergency Medicine; Visit Provider Internal Medicine Gastroenterology
DX: K74.60 Unspecified cirrhosis of liver (principal)
CPT/HCPCS: 76705